=== PATIENT | female | born 1990 | race African-American/Black ===

== ENCOUNTER 2020-03-27 16:48 | Emergency (ER) | payer MEDICAID, OTHER ==
[~2020-03-27] VITALS: Ht 160 cm; Wt 127.0 kg
[2020-03-27 17:46] VITALS: BP 147/93
[2020-03-27] MEDS ORDERED: cefTRIAXone SOD 1,000 MG VL IM ONE (18:00)
== END 2020-03-27 18:24 | disposition home or self-care (01) ==
LOC: ER 16:48
DX: J20.9 Acute bronchitis, unspecified (principal); J03.90 Acute tonsillitis, unspecified
CPT/HCPCS: 71045; 96372; 99283; J0696

== ENCOUNTER 2022-12-13 19:27 | Emergency (ER) | payer MEDICAID ==
[~2022-12-13] VITALS: Ht 160 cm; Wt 134.0 kg
[~2022-12-13 19:27] MED LIST: CIPR-173 PO; PHEN-922 PO
[2022-12-13] MEDS ORDERED: ACET500T58 PO (22:21)
[2022-12-13] MEDS ORDERED: AMOX875T4 PO (22:21)
[2022-12-13] MEDS ORDERED: PRED20TA2 PO (22:21)
[2022-12-13] MEDS ORDERED: cefTRIAXone SOD 1,000 MG VL IM ONE (22:30)
[2022-12-13] MEDS ORDERED: DexAMETHasone SOD PHOS 10MG/1ML VIAL INJ IM ONE (22:30)
[2022-12-13 23:08] VITALS: BP 139/94; PULSE 88; RESP 18; TEMP 97.5; O2SAT 97
== END 2022-12-13 23:16 | disposition home or self-care (01) ==
LOC: ER 19:27
DX: J20.9 Acute bronchitis, unspecified (principal); H66.91 Otitis media, unspecified, right ear
CPT/HCPCS: 96372; 99284; J0696; J1100

== ENCOUNTER 2023-01-20 23:23 | Emergency (ER) | payer MEDICAID ==
[~2023-01-20] VITALS: Ht 160 cm; Wt 137.0 kg
[~2023-01-20 23:23] MED LIST changes: +ACET500T58 PO; +AMOX875T4 PO; +PRED20TA2 PO
[2023-01-21 00:13] LABS: Urine Bacteria NONE SEEN /hpf (None Seen); Urine Blood Negative /uL (Negative); Urine Clarity HAZY (Clear); Urine Color Colorless (Yellow); Urine Protein, UAD Negative (Negative); Urine Specific Gravity 1.011 (1.001-1.035); Urine Urobilinogen Normal (Negative); Urine WBC 11 /hpf (0 - 5)
[2023-01-21 00:56] LABS: Basophils # (auto) 0 10 ^3/uL (0-0.2); Basophils % (auto) 0.4 % (0.0-2.0); Eosinophils # (auto) 0 10 ^3/uL (0-0.8); Eosinophils % (auto) 0.4 % (0.0-7.0); Hematocrit 37.9 % (36.0-46.0); Hemoglobin 12.3 g/dL (12.2-16.2); Lymphocytes # (auto) 1.9 10 ^3/uL (0.4-5.4); Lymphocytes % (auto) 29.5 % (10.0-50.0); Mean Corpuscular Hemoglobin 26.6 pg (28.0-32.0); Mean Corpuscular Hgb Conc. 32.5 g/dL (32.0-36.0); Mean Corpuscular Volume 81.7 fL (80.0-100.0); Monocytes # (auto) 0.4 10 ^3/uL (0-1.3); Monocytes % (auto) 6.6 % (0.0-12.0); Neutrophils # (auto) 4.2 10 ^3/uL (1.6-8.6); Neutrophils % (auto) 63.1 % (37.0-80.0); Red Blood Cells 4.64 10^6/uL (4.0-5.20); Red Cell Distribution Width 16.8 % (11.8-14.3); White Blood Cell 6.6 10^3/uL (4.4-10.8)
[2023-01-21 01:11] LABS: Alanine Aminotransferase 13 U/L (7-40); Albumin 4.3 g/dL (3.2-4.8); Alkaline Phosphatase 63 U/L (46-116); Anion Gap 10 (5-15); Aspartate Aminotransferase 9 U/L (13-40); BUN/Creatinine Ratio 7.7 (10.0-20.0); Bilirubin, Total 0.2 mg/dL (0.2-1.0); Blood Urea Nitrogen 7 mg/dL (9-23); Carbon Dioxide 21 mmol/L (20-30); Chloride 102 mmol/L (98-107); Glucose 108 mg/dL (74-106); Sodium 133 mmol/L (136-145)
[2023-01-21 03:06] VITALS: BP 144/84; PULSE 89; RESP 16; TEMP 98.4; O2SAT 100
[2023-01-21] MEDS ORDERED: CEFP200T15 PO (03:40)
[2023-01-21] MEDS ORDERED: cefTRIAXone SOD 1,000 MG VL IM ONE (03:45)
== END 2023-01-21 04:00 | disposition home or self-care (01) ==
LOC: ER 23:25
DX: O23.01 Infections of kidney in pregnancy, first trimester (principal); R10.2 Pelvic and perineal pain; Z3A.08 8 weeks gestation of pregnancy; Z79.899 Other long term (current) drug therapy
CPT/HCPCS: 36415; 80053; 81001; 81025; 84702; 85025; 96372; 99283; J0696

== ENCOUNTER 2023-02-18 20:11 | Emergency (ER) | payer MEDICAID ==
[~2023-02-18] VITALS: Ht 160 cm; Wt 138.8 kg
[~2023-02-18 20:11] MED LIST changes: +CEFP200T15 PO
[2023-02-18 20:44] VITALS: BP 132/98; PULSE 91; RESP 20; TEMP 98.6; O2SAT 99
[2023-02-18] MEDS ORDERED: CYCL-611 PO (23:37)
[2023-02-18] MEDS ORDERED: IBUP-1455 PO (23:37)
[2023-02-18] MEDS ORDERED: KETOROLAC TROMETH 60MG/2ML VIAL IM ONE (23:45)
[2023-02-18] MEDS ORDERED: DexAMETHasone SOD PHOS 10MG/1ML VIAL INJ IM ONE (23:45)
== END 2023-02-19 00:58 | disposition home or self-care (01) ==
LOC: ER 20:11
DX: S76.011A Strain of muscle, fascia and tendon of right hip, initial encounter (principal); Z79.899 Other long term (current) drug therapy; X50.1XXA Overexertion from prolonged static or awkward postures, initial encounter; Y93.89 Activity, other specified; Y92.89 Other specified places as the place of occurrence of the external cause; Y99.8 Other external cause status
CPT/HCPCS: 73502; 96372; 99284; J1100; J1885